=== PATIENT | female | born 1995 | race Two or more races ===

== ENCOUNTER 2016-04-28 21:18 | Emergency (ER) | payer OTHER ==
[2016-04-28 22:06] LABS: SPECIFIC GRAVITY 1.025 (1.001-1.030); URINE APPEARANCE CLEAR; URINE BILIRUBIN NEGATIVE (NEGATIVE); URINE BLOOD 3+ (NEGATIVE); URINE COLOR AMBER; URINE GLUCOSE (UA) NEGATIVE (NEGATIVE); URINE LEUKOCYTE ESTERASE NEGATIVE (NEGATIVE); URINE NITRITE NEGATIVE (NEGATIVE); URINE PROTEIN 1+ (NEGATIVE); URINE UROBILINOGEN NORMAL (0-1 mg/dl)
[2016-04-28 22:07] LABS: HCG,QUALITATIVE URINE NEGATIVE
[2016-04-28 22:17] LABS: URINE BACTERIA 1+; URINE RBC 15-20 /hpf; URINE WBC NEG /hpf
[2016-04-28] MEDS ORDERED: ACETAMINOPHEN 500 MG TABLET ONE (23:43)
--- NOTE | 2016-04-29 09:11 | RAD ---
Exam: Two-view chest COMPARISON: 12/31/2015 INDICATION: Fever and cough. FINDINGS: PA and lateral views of the chest were obtained. Cardiac silhouette is within normal limits and stable. Lungs are well-inflated. There is no focal airspace disease or pleural effusion. Mild levoconvex scoliosis is noted with the apex at T12-L1. Bones of the chest wall within normal limits. IMPRESSION: No radiographic evidence of pneumonia.
== END 2016-04-29 01:22 | disposition home or self-care (01) ==
LOC: ED 21:18
DX: J11.1 Influenza due to unidentified influenza virus with other respiratory manifestations (principal); R05 Cough
CPT/HCPCS: 81025; 87880; 81001; 71020; 87804; 99283 ×2; A9270